=== PATIENT | male | born 1955 | race Caucasian/White ===

== ENCOUNTER 2018-11-11 10:51 | Emergency (ER) | payer OTHER ==
[~2018-11-11] VITALS: Ht 165.1 cm; Wt 70.3 kg
[2018-11-11] MEDS ORDERED: ATOR10 PO (11:09)
[2018-11-11] MEDS ORDERED: LISI5 PO (11:09)
[2018-11-11] MEDS ORDERED: TRAM50 PO (11:09)
[2018-11-11] MEDS ORDERED: CETI5 PO (11:09)
[2018-11-11] MEDS ORDERED: TOPICAINE 5113 GM TOP (11:45)
[2018-11-11] MEDS ORDERED: Colace100 MG PO (11:45)
== END 2018-11-11 11:51 | disposition home or self-care (01) ==
LOC: ER 10:51
DX: K64.4 Residual hemorrhoidal skin tags (principal); Z79.899 Other long term (current) drug therapy; I10 Essential (primary) hypertension; F17.210 Nicotine dependence, cigarettes, uncomplicated
CPT/HCPCS: 99282

== ENCOUNTER 2020-11-24 18:00 | Inpatient (IN) | payer MEDICARE, OTHER ==
[~2020-11-24] VITALS: Ht 165.1 cm; Wt 75.7 kg
[~2020-11-24 18:00] MED LIST: ATOR10 PO; CETI5 PO; Colace100 MG PO; LISI5 PO; TOPICAINE 5113 GM TOP; TRAM50 PO
[2020-11-25 06:53] LABS: Hematocrit 35.7 % (37.0-53.0); Hemoglobin 12.2 g/dL (13.5-17.5); Mean Corpuscular HGB 29.9 pg (26.0-34.0); Mean Corpuscular HGB Conc 34.2 g/dL (31.5-36.5); Mean Corpuscular Volume 88 fL (80-100); Mean Platelet Volume 11.3 fL (9.1-12.4); Platelet Count 202 K/mm3 (150-400); RDW Coefficient Variation 12.7 % (11.7-14.2); RDW Standard Deviation 40.5 fL (35.1-46.3); Red Blood Cell Count 4.08 M/mm3 (4.30-5.90); White Blood Cell Count 8.81 K/mm3 (4.00-11.30)
[2020-11-25 07:06] LABS: International Normalized Ratio 1.06; Prothrombin Time Results 11.4 Sec (9.7-11.5)
[2020-11-25 07:11] LABS: Anion Gap 8 mmol/L (6-16); Blood Urea Nitrogen 5 mg/dL (8-24); Bun/Creatinine Ratio 7.5 (12.0-20.0); CO2, Blood 25 mmol/L (21-32); Calcium, Blood 8.7 mg/dL (8.5-10.1); Chloride, Blood 103 mmol/L (98-108); Creatinine, Blood 0.66 mg/dL (0.60-1.20); Glomerular Filtration Rate >60 (60-); Glucose, Blood 82 mg/dL (70-99); Potassium, Blood 3.6 mmol/L (3.5-5.5); Sodium, Blood 136 mmol/L (136-145)
[2020-11-25 08:35] LABS: BASOPHILS PERCENT MAN 0 % (0-2); EOSINOPHILS PERCENT MAN 0 % (0-6); LYMPHOCYTES ABSOLUTE MAN 1.49 K/mm3 (0.84-5.20); LYMPHOCYTES PERCENT MAN 17 % (21-46); MONOCYTES ABSOLUTE MAN 1.93 K/mm3 (0.16-1.47); MONOCYTES PERCENT MAN 22 % (4-13); MYELOCYTE ABSOLUTE MAN 0.08 K/mm3 (0.00-0.00); MYELOCYTE PERCENT MAN 1 % (0-0); NEUTROPHILS ABSOLUTE MAN 5.28 K/mm3 (1.96-9.15); SEG NEUTROPHILS PERCENT MAN 60 % (41-73); TOTAL CELLS COUNTED 100
[2020-11-26 06:18] LABS: Hematocrit 34.3 % (37.0-53.0); Hemoglobin 11.7 g/dL (13.5-17.5); Mean Corpuscular HGB 30.1 pg (26.0-34.0); Mean Corpuscular HGB Conc 34.1 g/dL (31.5-36.5); Mean Corpuscular Volume 88 fL (80-100); Mean Platelet Volume 11.2 fL (9.1-12.4); Platelet Count 196 K/mm3 (150-400); RDW Coefficient Variation 12.8 % (11.7-14.2); RDW Standard Deviation 41.7 fL (35.1-46.3); Red Blood Cell Count 3.89 M/mm3 (4.30-5.90)
[2020-11-26 06:57] LABS: BAND PERCENT MAN 1 % (0-8); BASOPHILS PERCENT MAN 0 % (0-2); EOSINOPHILS PERCENT MAN 0 % (0-6); LYMPHOCYTES % ATYPICAL MANUAL 1 % (0-0); LYMPHOCYTES ABSOLUTE MAN 1.76 K/mm3 (0.84-5.20); LYMPHOCYTES PERCENT MAN 27 % (21-46); MONOCYTES ABSOLUTE MAN 2.33 K/mm3 (0.16-1.47); MONOCYTES PERCENT MAN 37 % (4-13); SEG NEUTROPHILS PERCENT MAN 34 % (41-73); TOTAL CELLS COUNTED 100
[2020-11-27] MEDS ORDERED: AMOCLA875 PO (10:54)
== END 2020-11-27 11:40 | disposition home or self-care (01) | DRG 392 ==
LOC: ORSCIP 18:00
PROVIDERS: ADMIT Surgery
DX: K57.20 Diverticulitis of large intestine with perforation and abscess without bleeding (principal); J44.9 Chronic obstructive pulmonary disease, unspecified; E78.5 Hyperlipidemia, unspecified; I10 Essential (primary) hypertension; F17.210 Nicotine dependence, cigarettes, uncomplicated; Z98.890 Other specified postprocedural states; Z79.899 Other long term (current) drug therapy
CPT/HCPCS: 36415; 80048; 83735; 85025; 85610; A9270; J1170; J2543; J7120

== ENCOUNTER 2022-05-19 10:44 | Day surgery (SDC) | payer OTHER ==
[~2022-05-19] VITALS: Ht 167.6 cm; Wt 72.6 kg
[~2022-05-19 10:44] MED LIST changes: +AMOCLA875 PO
[2022-05-19] MEDS ORDERED: OXYC5 PO (11:41)
--- NOTE | 2022-05-19 11:51 | NUR ---
DR. ALVARENGA AT THE BEDSIDE AND SPOKE WITH THE PATIENT, PATIENT IN MUCH PAIN WITH THE LEFT FOOT GREAT TOE 12/05. ORDERED TO GIVE FENTANYL IN WHILE IN THE PRE OP PRIOR TO THE PROCEDURE ROOM.
--- NOTE | 2022-05-19 11:53 | NUR ---
fENTANYL 50 MCG IV GIVEN TO THE PATIENT FOR LEFT GREAT TOE PAIN 12/05.
--- NOTE | 2022-05-19 15:25 | NUR ---
CLARIFIED WITH DR. ALVARENGA ABOUT GIVING PLAVIX AND ASPIRIN LOADING DOSE. BOTH STARTED NOW. ASPIRIN 81 MG PO NOW AND PLAVIX 75 MG PO NOW GIVE TO THE PATIENT ORDERED.
--- NOTE | 2022-05-19 15:26 | NUR ---
HOB UP 35 DEGREES. PATIENT REMAINS ON THE MONITOR. [facility] RIDE HOME SCHEDULED FOR 1730 FOR RIDE HOME. RIGHT GROIN STABLE, ALL PEDAL PULSES ARE DOPPLER. LEFT GREAT TOE IS WARMER TO TOUCH, PURPLE/PINK IN COLOR.
[2022-05-19] MEDS ORDERED: ASPI81CH PO (15:37)
[2022-05-19] MEDS ORDERED: CLOP75 PO (15:37)
--- NOTE | 2022-05-19 16:32 | NUR ---
DR. ALVARENGA AT THE BEDSIDE AND PATIENT SIGNED CONSENT FOR RIGHT LEG INERVENTION. THIS WILL BE SENT TO THE OFFICE FOR FURTHER SCHEDULING. PATIENT EATING MEAL.
--- NOTE | 2022-05-19 17:21 | NUR ---
1700 PATIENT UP OOB OFF MONITOR, PIV REMOVED FROM THE RIGHT AC. PRESSURE DRESSING APPLIED. PATIENT DRESSED AND ALL BELONINGS GATHERED. REVIEWED DISCHARGE INSTRUCTIONS AND PATIENT WILL RETURN IN A FEW WEEKS FOR THE RIGHT LEG INTERVENTION. CONSENT WAS OBTAINED BY DR. ALVARENGA AND WILL BE FORWARDED TO THE OFFICE. PATIENT HAS RIDE HOME ARRANGED WITH [facility] ANDTHEY WILL BE HERE AT 1730. WHEELCHAIRED TO THE RISCO ENTRANCE WITH BELONGINGS TO MEET WITH RIDE.
== END 2022-05-19 23:24 | disposition home or self-care (01) ==
LOC: MHTC 10:44
DX: I70.222 Atherosclerosis of native arteries of extremities with rest pain, left leg (principal); I70.5 Atherosclerosis of nonautologous biological bypass graft(s) of the extremities; Z87.891 Personal history of nicotine dependence; I75.022 Atheroembolism of left lower extremity
CPT/HCPCS: 37221; 75625; 75716; 75774; 76937; 85347; 99152; 99153; A9270; C1725; C1760; C1769; C1876; C1887; C1894; C2623; C9764; C9765; J1644; J2250; J3010; J7030; J7050; Q9967

== ENCOUNTER 2022-06-16 06:51 | Inpatient (IN) | payer OTHER ==
[~2022-06-16] VITALS: Ht 167.6 cm; Wt 70.0 kg
[~2022-06-16 06:51] MED LIST changes: +ASPI81CH PO; +CEPH500 PO; +CLOP75 PO; +OXYC5 PO
--- NOTE | 2022-06-16 11:05 | NUR ---
DR ALVARENGA PHONE DISCUSSION WITH PT'S CUT OFF SAW OPERATOR PIPE BLANKS AT 1030 - PLAN TO DIRECT ADMIT FOR PARTIAL TOE SURGERY, ALBERTINA [facility]UST DRIER/HOSPITIALIST CALLED AND WILL ADMIT PT SHORTLY.
--- NOTE | 2022-06-16 12:38 | NUR ---
pt given coffee per request. pt sitting up in bed using cell phone. call light w/in reach.
--- NOTE | 2022-06-16 14:25 | NUR ---
PT TRANSFERRED TO RM 208. AMB FROM BED TO BED OK WITH CANE, L GROIN SITE STABLE BUT BRUISED R/T PROCEDURE BLOOD LOSS. SITE APPEARS STABLE BUT TENDER. 208 RN VISUALIZED SITE. REPORT GIVEN, PLAN IS FOR DR MESSINA TO DISCUSS PLAN OF CARE LATER THIS AFTERNOON R/T TOE.
--- NOTE | 2022-06-16 17:52 | NUR ---
shift summary PT AXO X4, IRRITABLE AND MOSTLY COOPERATIVE WITH CARE THOUGH REFUSED THE TWO RN SKIN ASSESSMENT. PHOTO OF TOE IN CHART, THOUGH A NEW PHOTO IS STILL NEEDED FOR THE CHART. IV PATENT AND SALINE LOCKED PER EMAR. DR MESSINA CONSULTED ON PT, SEE NOTE. PT TO BE NPO AT MIDNIGHT FOR TOE AMPUTATION TOMORROW POSSIBLY AROUND LUNCH TIME PER DR MESSINA. PT HAD ANGIO AND REVASCULARIZATION EARLIER THIS SHIFT. L GROIN ACCESS UNCHANGED SINCE ADMIT. PT COMPLAINS OF SEVERE PAIN TO LEFT FOOT. TERI YUSUF NOTIFIED OF PT PAIN, NEW ORDERS INITIATED, WITH LITTLE EFFECT. DR PFEIFFER THEN NOTIFIED OF PATIENT PAIN AT 1648, NEW ORDERS PLACED AND MEDICATION ADMINISTERED. PT CONTINUES TO COMPLAIN OF PAIN 7-01/04. BED IN LOW POSITION, CALL LIGHT WITHIN REACH. PATIENT ENCOURAGED TO CALL WHEN OOB BUT DOES NOT.
--- NOTE | 2022-06-17 05:04 | NUR ---
PHYSICIAN CONTACT: CALLED DR. TA REGARDING PT INCREASED PAIN. DISCUSSED HOW PT WAS STILL RESIDING AT A 7/8 ON THE PAIN SCALE AFTER BEING MEDICATED. ORDER TO CHANGE FENTANYL FROM 25-50 MCG Q2 WAS OBTAINED.
--- NOTE | 2022-06-17 06:11 | NUR ---
SHIFT SUMMARY: PT A DIRECT ADMIT AFTER HAVING REVASCULARIZATION AND ANGIO COMPLETED ON 06/17. PT HERE FOR A NECROTIC L BIG TOE. PLANS ARE FOR SUGERY TODAY. PT HAS BEEN NPO SINCE MIDNIGHT. PT REPORTED SEVERE PAIN T/O THE NIGHT. AFTER MEDICATING WITH IV AND PO MEDICATION T/O THE SHIFT, PT CONTINUED TO REPORT HIGH PAIN RATING. DR. TA WAS CONTACTED AND NEW ORDER FOR 25-50 MCG Q2 WAS RECEIVED. L FEMORAL SITE REMAINS UNCHANGED SINCE BEGINNING OF SHIFT. BRUISING NOTED TO THE AREA. REMAINS TENDER. TRANSPARENT DRESSING IN PLACE. NEW PICTURE TAKEN OF L GREAT TOE AND PLACED IN CHART. REMAINED TACHYCARDIC T/O THE NIGHT. RESTING WITH CALL LIGHT IN REACH. WILL GIVE REPORT TO DAY TIME RN.
--- NOTE | 2022-06-17 09:05 | NUR ---
PT ASKING FOR FOOD, DISCUSSED NPO FOR SURGERY. PT CURSING STATES "YOU PEOPLE ARE NOTHING BUT A JOKE, [facility] FOR 30 MIN. TO GET MY TOE FIXED" PT REPORTS TOE VERY PAINFUL, DECLINES THAT I CAN LOOK AT IT AT THIS TIME. DISCUSSED WITH PATIENT THAT SURGERY IS TENTATIVELY SCHEDULED FOR 1600 TODAY AND I WILL KEEP HIM UPDATED IF TIME CHANGES.
--- NOTE | 2022-06-17 13:39 | NUR ---
PT ALLOWED THIS RN TO EVALUATE FEET. LEFT GREAT TOE BLACK FOR 3/4 THE LENGTH OF TOE AND PAINFUL
--- NOTE | 2022-06-17 16:02 | NUR ---
PT REQUSTS HIS WALLET, KEYS AND PHONE BE LOCKED UP. DISCUSSED WITH PATIENT THAT SECURITY CAN LOCK HIS BELONGINGS IN SECURE PLACE AND THEY WILL BE RETURNED TO HIM AT HIS REQUEST. PT DECLINES SECURITY DEPT SECURING HIS BELONGINGS. PT AGREES TO WALLET AND KEYS BEING LOCKED IN MEDICATION DRAWER OUTSIDE OF PATIENT ROOM. NITESH WILLAMS RN WITNESSED AT PT BEDSIDE THAT PATIENT HAD 5- $5 BILL IN HIS WALLET AND WITNESSED BELONGINGS BEING LOCKED IN MED DRAWER
--- NOTE | 2022-06-17 18:20 | NUR ---
1700 PT TALKING IN RAISED VOICE, CURSING STATES HE IS LEAVING IF HE HAS NOT BEEN TAKEN TO SURGERY BY 1830. DISCUSSED WITH PATIENT THAT I WOULD SPEAK WITH DAY SURGERY STAFF TO SEE IF THEY COULD PROVIDE AN UPDATE TO WHEN SURGERY MIGHT BE. SPOKE WITH DAY SURGERY RN WHO WILL SPEAK WITH PATIENT TO UPDATE HIM ON SURGERY TIME.
--- NOTE | 2022-06-17 18:25 | NUR ---
PT LAYING IN BED WITH EYES CLOSED. PT DECLINED SURGICAL SCRUB, MOUTHWASH AND NASAL SWABS AT THIS TIME. LEFT GREAT TOE UNCHANGED IN APPEARANCE FROM INITIAL ASSESSMENT
--- NOTE | 2022-06-17 18:46 | NUR ---
TO DAY SURGERY VIA BED
--- NOTE | 2022-06-17 19:17 | NUR ---
RECEIVED REPORT FROM DAY TIME RN. PT TAKEN TO SURGERY BEFORE THIS RN ARRIVED AND RESUMED CARE.
--- NOTE | 2022-06-17 20:49 | NUR ---
PT ARRIVED BACK TO THE UNIT AT 2039. BEDSIDE REPORT TAKEN FROM PACU NURSE. VSS AT THIS TIME. PAIN WELL MANAGED AT THIS TIME. PT RESTING IN BED AND GIVEN WATER AND JELLO. TOLERATING WELL. SLY WRAP AND GAUZE IN PLACE ON L FOOT. CAP REFILL <3 SECONDS ON EXPOSED 3 SMALL TOES. PT A&0X4. ANSWERING APPROPRIATELY. DENYING SOB, CP, N/T. CALL LIGHT REMAINS IN REACH AT THIS TIME.
--- NOTE | 2022-06-18 04:14 | NUR ---
SHIFT SUMMARY: PODx1 NOW FROM L GREAT TOE PARTIAL AMPUTATION. PAIN WAS WELL MANAGED T/O THE SHIFT. L FOOT HAS GAUZE AND SLY WRAP IN PLACE THAT IS C/D/I. PT HAS LIMB ELEVATED ON PILLOWS. TOLERATING PO FLUIDS AND FOOD AT THIS TIME. DENYING NAUSEA. REMAINS ON BEDREST. VSS. RESTING WITH CALL LIGHT IN REACH. WILL GIVE REPORT TO DAY TIME RN.
[2022-06-18 04:25] LABS: Hematocrit 26.6 % (37.0-53.0); Hemoglobin 8.7 g/dL (13.5-17.5); Mean Corpuscular HGB 31.2 pg (26.0-34.0); Mean Corpuscular HGB Conc 32.7 g/dL (31.5-36.5); Mean Corpuscular Volume 95 fL (80-100); Mean Platelet Volume 11.7 fL (9.1-12.4); Platelet Count 143 K/mm3 (150-400); RDW Coefficient Variation 14.8 % (11.7-14.2); RDW Standard Deviation 51.8 fL (35.1-46.3); Red Blood Cell Count 2.79 M/mm3 (4.30-5.90)
[2022-06-18 05:05] LABS: Percent Saturation 14.5 % (20.0-50.0)
[2022-06-18 05:25] LABS: Albumin, Blood 2.9 g/dL (3.4-5.0); Albumin/Globulin Ratio 0.9 (0.8-1.8); Bilirubin, Total 0.3 mg/dL (0.1-1.0); Bun/Creatinine Ratio 14.1 (12.0-20.0); Calcium, Blood 8.7 mg/dL (8.5-10.1); Creatinine, Blood 0.71 mg/dL (0.60-1.20); Globulin, Blood 3.2 g/dL (2.2-4.0); Potassium, Blood 4.1 mmol/L (3.5-5.5); Total Protein, Blood 6.1 g/dL (6.4-8.2)
--- NOTE | 2022-06-18 09:13 | NUR ---
9195 PT ANGRY, CURSING STATES PAIN MEDS ARE NOT HELPING AT ALL. PT REQUESTS MORPHINE BUT STATES IT GIVES HIM A RASH BUT WOULD RATHER HAVE A RASH THEN PAIN. SPOKE WITH HOSPITALIST REGARDING PATIENTS PAIN AND NEW ORDERS RECEIVED
--- NOTE | 2022-06-18 12:41 | NUR ---
1200 PT REPORTS PAIN HAS ONLY DECREASED A SMALL AMOUNT AFTER LAST MEDICATED. PT REQUESTING MORPHINE. SPOKE WITH DR BROWN REGARDING PAIN AND NEW ORDERS RECEIVED. UPDATED PATIENT WITH PAIN MANAGEMENT PLAN, PT STATES HE DOES NOT THINK THIS AMOUNT WILL WORK BUT IS AGREEABLE TO TRY MEDS AND SEE IF THEY HELP
--- NOTE | 2022-06-18 15:45 | NUR ---
1530 PT ANGRY, CURSING ASKS WHEN DR MESSINA WILL BE HERE AND "WHY HAVENT YOU BEEN TALKING TO HIM EVERY TIME YOU HAVE HAD TO CALL THE OTHER DOCTOR" SPOKE WITH DR MESSINA AND THEN DISCUSSED WITH PATIENT THAT DR MESSINA WILL BE MAKING ROUNDS THIS EVENING. PT STATES THAT THIS ISNT SOON ENOUGH BECAUSE HE WILL NOT BE ABLE TO OBTAIN HIS MEDS FROM [facility] THAT HE WILL NOT STAY HERE ANOTHER NIGHT. PT STATES HE IS CALLING DR JESUS OFFICE. SPOKE WITH DR BROWN REGARDING PATIENT, ORDERS RECEIVED
--- NOTE | 2022-06-18 16:40 | NUR ---
PT DECLINES ATIVAN, REQUESTS MORPHINE AT THIS TIME.
--- NOTE | 2022-06-18 16:57 | NUR ---
DR MESSINA HERE TO SEE PATIENT. PT COOPERATIVE. PT REQUESTS DISCHARGE THIS EVENING. SPOKE WITH DR BROWN WHO WILL PLACE DISCHARGE ORDERS
--- NOTE | 2022-06-18 17:35 | NUR ---
1835 DISCHARGED HOME, FRIEND PROVIDING TRANSPORTATION. PT ANDREAS PO FOOD AND FLUIDS WITHOUT NAUSEA. VOIDING CLEAR YELLOW URINE. LEFT FOOT DRESSING CLEAN, DRY AND INTACT. PT VERBALIZED UNDERSTANDING TO KEEP DRESSING CLEAN AND DRY AND TO FOLLOW UP WITH DR MESSINA ON 06/28/22. PT REPORTS PAIN IS 5-7/10. WRITTEN PRESCRIPTIONS PROVIDED TO PATIENT. LEFT TOES WARM AND PINK WITH CAPILLARY REFILL LESSS THAN 3 SECONDS
== END 2022-06-18 17:35 | disposition home or self-care (01) | DRG 254 ==
LOC: MHTC 06:51 → SURS 12:34 → MHTC 12:35 → SURS 12:36 → MHTC 15:57 → SURS 15:57
PROVIDERS: Internal Medicine; ADMIT Internal Medicine
PROC: 04FJ3ZZ Fragmentation of Left External Iliac Artery, Percutaneous Approach (ICD-10-PCS; 2022-06-17)
PROC: 04FN3ZZ Fragmentation of Left Popliteal Artery, Percutaneous Approach (ICD-10-PCS; 2022-06-17)
PROC: 04FL3ZZ Fragmentation of Left Femoral Artery, Percutaneous Approach (ICD-10-PCS; 2022-06-17)
PROC: 0Y6Q0Z3 Detachment at Left 1st Toe, Low, Open Approach (ICD-10-PCS; principal; 2022-06-18)
DX: I70.262 Atherosclerosis of native arteries of extremities with gangrene, left leg (principal); K70.30 Alcoholic cirrhosis of liver without ascites; F10.20 Alcohol dependence, uncomplicated; I10 Essential (primary) hypertension; E78.5 Hyperlipidemia, unspecified; J44.9 Chronic obstructive pulmonary disease, unspecified; D64.9 Anemia, unspecified; F17.210 Nicotine dependence, cigarettes, uncomplicated; Z98.890 Other specified postprocedural states; Z79.02 Long term (current) use of antithrombotics/antiplatelets; Z79.82 Long term (current) use of aspirin; Z79.899 Other long term (current) drug therapy
CPT/HCPCS: 36415; 75716; 75774; 76937; 80053; 82607; 82728; 82746; 83540; 83550; 85027; 87071; 87075; 87077; 87186; 87205; 88305; 88311; 94760; 96365; 96375; 96376; 99152; 99153; A9270; C1725; C1760; C1769; C1887; C1894; C2623; C9764; G0378; J0690; J1100; J1644; J2250; J2270; J2370; J2405; J2704; J2795; J3010; J3370; J7030; J7050; J7120; Q9967

== ENCOUNTER 2022-12-30 09:11 | Day surgery (SDC) | payer OTHER ==
[~2022-12-30] VITALS: Ht 167.6 cm; Wt 71.1 kg
[~2022-12-30 09:11] MED LIST changes: +LISI20 PO; +VITAMIN D325 MC3 PO
[2022-12-30 10:41] VITALS: BP 100/61
== END 2022-12-30 11:06 | disposition home or self-care (01) ==
LOC: ORSCSDS 09:11
PROVIDERS: Ophthalmology
PROC: 08RK3JZ Replacement of Left Lens with Synthetic Substitute, Percutaneous Approach (ICD-10-PCS; principal; 2022-12-30 10:30)
DX: H25.12 Age-related nuclear cataract, left eye (principal); H52.202 Unspecified astigmatism, left eye; Z96.1 Presence of intraocular lens; I10 Essential (primary) hypertension; J44.9 Chronic obstructive pulmonary disease, unspecified; F17.210 Nicotine dependence, cigarettes, uncomplicated; K74.60 Unspecified cirrhosis of liver; Z79.02 Long term (current) use of antithrombotics/antiplatelets; Z79.899 Other long term (current) drug therapy; Z79.82 Long term (current) use of aspirin
CPT/HCPCS: J2250; J3301; J7040; V2632

== ENCOUNTER 2025-03-25 13:51 | Observation (INO) | payer OTHER ==
[2025-03-25] VITALS (11 sets, daily range): BP systolic 120–155; BP diastolic 58–90
[~2025-03-25] VITALS: Ht 167.6 cm; Wt 65.8 kg
[2025-03-25] MEDS ORDERED: Ondansetron HCl 2 MG / ML 2ML Vial IV ONE (14:25)
[2025-03-25] MEDS ORDERED: Ketorolac Tromethamine 15mg Vial IV ONE (14:25)
[2025-03-25 14:49] LABS: Hematocrit 43.2 % (37.0-53.0); Hemoglobin 14.6 g/dL (13.5-17.5); Mean Corpuscular HGB Conc 33.8 g/dL (31.5-36.5); Mean Corpuscular Volume 96 fL (80-100); NRBC ABSOLUTE 0.00 K/mm3 (0.00-0.02); NRBC Auto 0.0 /100 WBC (0.0-0.2); Platelet Count 212 K/mm3 (150-400); RDW Coefficient Variation 13.7 % (11.7-14.2); RDW Standard Deviation 48.2 fL (35.1-46.3)
[2025-03-25 15:23] LABS: Alanine Aminotransfer (ALT/SGP 19.0 U/L (12-78); Albumin, Blood 4.2 g/dL (3.4-5.0); Albumin/Globulin Ratio 1.2 (0.8-1.8); Anion Gap 9.0 mmol/L (3-11); Aspartate Aminotrans (AST/SGOT 12.0 U/L (12-37); Bilirubin, Total 0.9 mg/dL (0.1-1.0); Blood Urea Nitrogen 12.0 mg/dL (8-24); CO2, Blood 25.0 mmol/L (21-32); Calcium, Blood 9.8 mg/dL (8.5-10.1); Chloride, Blood 103.0 mmol/L (98-108); Creatinine, Blood 0.8 mg/dL (0.60-1.20); Globulin, Blood 3.4 g/dL (2.2-4.0); Glucose, Blood 106.0 mg/dL (70-99); Potassium, Blood 4.3 mmol/L (3.5-5.5); Sodium, Blood 133.0 mmol/L (136-145); Total Protein, Blood 7.6 g/dL (6.4-8.2)
[2025-03-25 16:10] LABS: BASOPHILS ABSOLUTE MAN 0.10 K/mm3 (0.00-0.23); BASOPHILS PERCENT MAN 1 % (0-2); EOSINOPHILS ABSOLUTE MAN 0.00 K/mm3 (0.00-0.68); EOSINOPHILS PERCENT MAN 0 % (0-6); LYMPHOCYTES ABSOLUTE MAN 1.28 K/mm3 (0.84-5.20); LYMPHOCYTES PERCENT MAN 12 % (21-46); MONOCYTES ABSOLUTE MAN 2.77 K/mm3 (0.16-1.47); MONOCYTES PERCENT MAN 26 % (4-13); NEUTROPHILS ABSOLUTE MAN 6.51 K/mm3 (1.96-9.15); SEG NEUTROPHILS PERCENT MAN 61 % (41-73)
[2025-03-25] MEDS ORDERED: HYDROmorphone HCl/Pf 1MG SYR IV ONE (16:25)
[2025-03-25] MEDS ORDERED: NS 500 ML IV SCH (16:25)
[2025-03-25] MEDS ORDERED: Bupivacaine 0.5% W/EPI 1:200000 SDV 30 ML Vial ONE (16:45)
[2025-03-25] MEDS ORDERED: CeFAZolin Sodium 2,000 MG in NS 100 ML IV SCH (17:00)
--- NOTE | 2025-03-25 17:00 | NUR ---
PT TO UNIT VIA W/C. ABLE TO TRANSFER HIMSELF INDEPENDENTLY TO W/C. BELONGINGS INCLUDING CELL PHONE BROUGHT TO DAY SURGERY WITH PT. History, Chart, Medications and Allergies reviewed before start of procedure. Pre-Op teaching done. Pt verbalizes understanding. PT REPORTS NOT WANTING ANY FAMILY MEMBERS CALLED AFTER PROCEDURE. PT REPORTS HAVING 1/2 C OF COFFEE WITH SUGAR THIS MORNING AT 0900 AND NO FOOD SINCE LAST NIGHT.
[2025-03-25] MEDS ORDERED: Midazolam HCl 1MG / ML 2ML Vial ONE (18:07)
[2025-03-25] MEDS ORDERED: Rocuronium Bromide 10 MG/ML 5ML Injection IV ONE ×2 (18:07→18:46)
[2025-03-25] MEDS ORDERED: Dexamethasone Sod Phos 10 MG/ML 1ML VIAL ONE (18:22)
[2025-03-25] MEDS ORDERED: Ondansetron HCl 2 MG / ML 2ML Vial ONE (18:22)
[2025-03-25] MEDS ORDERED: Ketorolac Tromethamine 30mg Vial ONE (18:24)
[2025-03-25] MEDS ORDERED: FentaNYL Citrate 50 MCG/ML 2 ML Injection ONE (18:34)
[2025-03-25] MEDS ORDERED: Phenylephrine HCl 100 MCG/ML-NS 10MLSYR (1MG/10ML) ONE (18:34)
[2025-03-25] MEDS ORDERED: Ondansetron HCl 2 MG / ML 2ML Vial IV PRN ×2 (18:50→21:00)
[2025-03-25] MEDS ORDERED: FentaNYL Citrate 50 MCG/ML 2 ML Injection IV PRN ×2 (18:50→18:55)
[2025-03-25] MEDS ORDERED: HYDROmorphone HCl/Pf 1MG SYR IV PRN ×2 (18:55)
--- NOTE | 2025-03-25 19:05 | NUR ---
03/25/25 1905 Rosita Mahmood MARCAINE 0.5% WITH 1:200,[address] CONWAY
[2025-03-25] MEDS ORDERED: Sugammadex Sodium 200 MG/2ML SDV (100 MG/ML) ONE (19:28)
[2025-03-25] MEDS ORDERED: FLU VACC TS2025(65UP)/MF59C/PF 45 MCG/0.5 ML SYRINGE IM SCH (21:00)
[2025-03-25] MEDS ORDERED: Albuterol 2.5 MG/3 ML VIAL INH PRN (21:35)
[2025-03-25] MEDS ORDERED: Ketorolac Tromethamine 15mg Vial IV PRN (21:40)
[2025-03-26 03:43] VITALS: BP 117/62
[2025-03-26 04:18] LABS: BASOPHILS ABSOLUTE AUTO 0.01 K/mm3 (0.00-0.23); BASOPHILS PERCENT AUTO 0 % (0-2); EOSINOPHILS ABSOLUTE AUTO 0.04 K/mm3 (0.00-0.68); EOSINOPHILS PERCENT AUTO 0 % (0-6); Hematocrit 36.6 % (37.0-53.0); Hemoglobin 12.5 g/dL (13.5-17.5); IMMATURE GRAN ABSOLUTE AUTO 0.15 K/mm3 (0.00-0.10); IMMATURE GRAN PERCENT AUTO 1 % (0-1); LYMPHOCYTES ABSOLUTE AUTO 0.81 K/mm3 (0.84-5.20); LYMPHOCYTES PERCENT AUTO 7 % (21-46); MONOCYTES ABSOLUTE AUTO 1.02 K/mm3 (0.16-1.47); MONOCYTES PERCENT AUTO 9 % (4-13); Mean Corpuscular HGB Conc 34.2 g/dL (31.5-36.5); Mean Corpuscular Volume 94 fL (80-100); NEUTROPHILS ABSOLUTE AUTO 9.53 K/mm3 (1.96-9.15); NEUTROPHILS PERCENT AUTO 83 % (41-73); NRBC ABSOLUTE 0.00 K/mm3 (0.00-0.02); NRBC Auto 0.0 /100 WBC (0.0-0.2); Platelet Count 185 K/mm3 (150-400); RDW Coefficient Variation 13.5 % (11.7-14.2); RDW Standard Deviation 47.2 fL (35.1-46.3)
[2025-03-26 05:01] LABS: Alanine Aminotransfer (ALT/SGP 16.0 U/L (12-78); Albumin, Blood 3.4 g/dL (3.4-5.0); Albumin/Globulin Ratio 1.2 (0.8-1.8); Anion Gap 9.0 mmol/L (3-11); Aspartate Aminotrans (AST/SGOT 10.0 U/L (12-37); Bilirubin, Total 0.6 mg/dL (0.1-1.0); Blood Urea Nitrogen 13.0 mg/dL (8-24); CO2, Blood 24.0 mmol/L (21-32); Calcium, Blood 8.8 mg/dL (8.5-10.1); Chloride, Blood 102.0 mmol/L (98-108); Creatinine, Blood 0.78 mg/dL (0.60-1.20); Globulin, Blood 2.9 g/dL (2.2-4.0); Glucose, Blood 116.0 mg/dL (70-99); Potassium, Blood 4.3 mmol/L (3.5-5.5); Sodium, Blood 131.0 mmol/L (136-145); Total Protein, Blood 6.3 g/dL (6.4-8.2)
[2025-03-26 07:15] VITALS: BP 133/76
--- NOTE | 2025-03-26 07:29 | NUR ---
SUMMARY PT TOLERATING PO AND VOIDING.AMBULATORY IN ROOM.
--- NOTE | 2025-03-26 10:41 | NUR ---
DR CONWAY IN TO SEE PT.
--- NOTE | 2025-03-26 11:40 | NUR ---
PT STATING NEEDS TO LEAVE BECAUSE DOG IS LOOSE. NOTIFIED DR FERNANDEZ WHO IS WORKING ON DC NOW.
[2025-03-26 11:47] VITALS: BP 163/90
[2025-03-26] MEDS ORDERED: IBUP600 PO (11:52)
--- NOTE | 2025-03-26 11:58 | NUR ---
PT DC'D. VERY EAGER TO LEAVE, CONCERNED ABOUT LOOSE DOG. NEARLY LEFT AMA. REVIEWED DC INSTRUCTIONS W/PT; VERBALIZED UNDERSTANDING. PT LEFT UNIT IN WC W/POSSESSIONS AND DC INSTRUCTIONS IN HAND TO MEET CAB AT PATIENT ENTRANCE. PT CALLED CAB INDEPENDENTLY.
== END 2025-03-26 12:13 | disposition home or self-care (01) ==
LOC: ER 13:51 → SURS 13:53 → ER 17:57 → EDBEDREQ 18:04 → SURS 20:10
PROVIDERS: Emergency Medicine; Surgery; ADMIT Student in an Organized Health Care Education/Training Program
PROC: 0WUF4JZ Supplement Abdominal Wall with Synthetic Substitute, Percutaneous Endoscopic Approach (ICD-10-PCS; principal; 2025-03-25 11:15)
PROC: 8E0W4CZ Robotic Assisted Procedure of Trunk Region, Percutaneous Endoscopic Approach (ICD-10-PCS; principal; 2025-03-25 11:15)
DX: K42.0 Umbilical hernia with obstruction, without gangrene (principal); I10 Essential (primary) hypertension; E78.5 Hyperlipidemia, unspecified; I73.9 Peripheral vascular disease, unspecified; J44.9 Chronic obstructive pulmonary disease, unspecified; K74.60 Unspecified cirrhosis of liver; F17.210 Nicotine dependence, cigarettes, uncomplicated; Z79.02 Long term (current) use of antithrombotics/antiplatelets; Z79.899 Other long term (current) drug therapy; Z66 Do not resuscitate; Z89.412 Acquired absence of left great toe
CPT/HCPCS: 36415; 74177; 80053; 83690; 85025; 96374-59; 96375; 99285-25; A9270; C1781; J0690; J1100; J1885; J2250; J2371; J2405; J3010; J7030; J7120; Q9967